=== PATIENT | female | born 1970 | race African-American/Black ===

== ENCOUNTER 2016-07-03 22:55 | Emergency (ER) | payer OTHER ==
[~2016-07-03] VITALS: Ht 162.6 cm; Wt 64.9 kg
[2016-07-03 23:03] VITALS: BP 129/83
== END 2016-07-04 00:30 | disposition home or self-care (01) ==
LOC: ER 22:57
DX: Z53.21 Procedure and treatment not carried out due to patient leaving prior to being seen by health care provider (principal)
CPT/HCPCS: A4606; Z7610